=== PATIENT | female | born 1945 | race Asian ===

== ENCOUNTER 2021-05-29 08:54 | Outpatient (CLI) | payer MEDICARE, BC | END 2021-05-29 08:55 | disposition home or self-care (01) | LOC: CSHRAD 08:54 | PROVIDERS: ATTEND Family Medicine | DX: Z87.01 Personal history of pneumonia (recurrent) (principal); J98.4 Other disorders of lung | CPT/HCPCS: 71046 ==

== ENCOUNTER 2022-03-04 13:59 | Outpatient (CLI) | payer MEDICARE, BC | END 2022-03-04 14:00 | disposition home or self-care (01) | LOC: CSHMAMMO 13:59 | PROVIDERS: ATTEND Family Medicine | DX: Z12.31 Encounter for screening mammogram for malignant neoplasm of breast (principal) | CPT/HCPCS: 77063; 77067 ==

== ENCOUNTER 2022-05-05 18:56 | Emergency (ER) | payer MEDICARE, BC ==
[2022-05-05 20:44] LABS: #Eosinphils 0.2 10x3/uL (0.0-0.5); #Monocytes 0.6 10x3/uL (0.0-1.1); #Neutrophils 4.2 10x3/uL (1.5-8.4); %Basophils 0.3 % (0.0-2.0); %Lymphocytes 27.5 % (18.0-47.0); %Monocytes 8.4 % (0.0-10.0); %Neutrophils 60.4 % (40.0-75.0); Hemoglobin 9.6 g/dL (12.0-15.5); Mean Corpuscular HGB CONC 32.9 g/dL (32.0-36.0); Mean Corpuscular Hemoglobin 30.2 pg (27.0-33.0); Mean Corpuscular Volume 91.8 fl (81.6-98.3); Mean Platelet Volume 9.1 fl (7.4-10.4); Platelet Count 459 10x3/uL (150-450); Red Blood Cell (RBC) Count 3.18 10x6/uL (3.90-5.03)
[2022-05-05 21:12] LABS: ALT (SGPT) 13 U/L (8-55); AST (SGOT) 24 U/L (5-34); Albumin 3.5 g/dL (3.4-4.8); Alkaline Phosphatase 60 U/L (40-110); Anion Gap 14 mmol/L (10-20); BUN (Urea Nitrogen) 17 mg/dL (9.8-20.1); Bilirubin, Total 0.4 mg/dL (0.2-1.2); Calc. Creatinine Clearance 0 mL/min (70-130); Calcium 9.3 mg/dL (7.8-10.44); Carbon Dioxide 23 mmol/L (23-31); Chloride 102 mmol/L (98-107); Estimated GFR 87; Globulin 5.7 g/dL (2.4-3.5); Glucose 98 mg/dL (83-110); Potassium 4.2 mmol/L (3.5-5.1); Protein, Total 9.2 g/dL (5.8-8.1); Sodium 135 mmol/L (136-145)
== END 2022-05-06 03:52 | disposition short-term general hospital (02) ==
LOC: CSHERS 18:56
DX: R06.02 Shortness of breath (principal); E03.9 Hypothyroidism, unspecified
CPT/HCPCS: 36415; 71045; 71250; 80053; 83880; 84484; 85025; 85379; 86850; 86900; 86901; 93005

== ENCOUNTER 2022-08-04 15:22 | Outpatient (CLI) | payer MEDICARE, BC | END 2022-08-04 15:23 | disposition home or self-care (01) | LOC: CSHULT 15:22 | PROVIDERS: ATTEND Internal Medicine | DX: M79.605 Pain in left leg (principal); M79.89 Other specified soft tissue disorders; R26.9 Unspecified abnormalities of gait and mobility ==

== ENCOUNTER 2022-08-14 10:04 | Outpatient (CLI) | payer MEDICARE, BC | END 2022-08-14 10:05 | disposition home or self-care (01) | LOC: CSHRAD 10:04 | PROVIDERS: ATTEND Internal Medicine Rheumatology | DX: M81.0 Age-related osteoporosis without current pathological fracture (principal) | CPT/HCPCS: 72070 ==

== ENCOUNTER 2022-10-22 08:11 | Outpatient (CLI) | payer MEDICARE, BC | END 2022-10-22 08:12 | disposition home or self-care (01) | LOC: CSHRAD 08:11 | PROVIDERS: ATTEND Internal Medicine | DX: R13.10 Dysphagia, unspecified (principal); K22.89 Other specified disease of esophagus | CPT/HCPCS: 74220 ==